=== PATIENT | female | born 1990 | race Caucasian/White ===

== ENCOUNTER 2021-05-13 20:11 | Inpatient (IN) | payer OTHER ==
[~2021-05-13] VITALS: Ht 132.1 cm; Wt 68.5 kg
[2021-05-13] MEDS ORDERED: AZITHROMYCIN 500 MG in DEXT 5% WATER 250 ML IV ONE (20:30)
[2021-05-13] MEDS ORDERED: CEFTRIAXONE 1 G PREMIX 50 ML IV ONE (20:30)
[2021-05-13] MEDS ORDERED: DEXAMETHASONE 10 MG/ML VIAL IV ONE (20:30)
[2021-05-13] MEDS ORDERED: NOREPINEPHRINE 8 MG in DEXT 5% WATER 242 ML IV STA (20:43)
[2021-05-13] MEDS ORDERED: SODIUM CHLORIDE 0.9% 1000ML BAG (SEPSIS BOLUS) IV ONE (20:45)
[2021-05-13 20:50] LABS: BASOPHILS % 0.2 % (0.0-2.0); HEMATOCRIT. 32.7 % (36.0-48.0); HEMOGLOBIN. 11.2 g/dL (12.0-16.0); LYMPHOCYTES % 8.9 % (20.0-50.0); MEAN CORPUSCULAR HEMOGLOBIN 32.6 pg (28.0-32.0); MEAN CORPUSCULAR VOLUME 94.7 fL (81.0-99.0); MEAN PLATELET VOLUME 10.9 fl (7.4-10.4); MONOCYTES % 4.4 % (2.0-8.0); NEUTROPHILS % 86.5 % (40.0-76.0); PLATELET 71 x1000/uL (130-400); RED BLOOD CELL COUNT 3.45 mill/uL (4.2-5.4)
[2021-05-13 20:52] LABS: HCG SCREEN NEGATIVE
[2021-05-13] MEDS ORDERED: NOREPINEPHRINE 8MG/250ML PMX 250 ML IV PRN (21:00)
[2021-05-13 21:03] LABS: D-DIMER 4.35 mg/L FEU (<0.50); PROTHROMBIN TIME 10.7 sec (9.6-11.0)
[2021-05-13 21:57] LABS: CHLORIDE 109 mEq/L (98-107)
[2021-05-13 22:06] LABS: CREATINE KINASE 599 IU/L (26-192)
[2021-05-13 22:07] LABS: T4 FREE 1.12 ng/dL (0.76-1.46)
[2021-05-13 22:09] LABS: CLARITY URINE CLEAR (CLEAR); COLOR URINE YELLOW (YELLOW); KETONES URINE NEGATIVE (NEGATIVE); LEUKOCYTE ESTERASE URINE NEGATIVE (NEGATIVE); NITRITE URINE NEGATIVE (NEGATIVE); OCCULT BLOOD URINE NEGATIVE (NEGATIVE); PH URINE 5.5 (4.5-8.0); PROTEIN URINE 1+ (NEGATIVE); SPECIFIC GRAVITY URINE 1.018 (1.005-1.030)
[2021-05-14] VITALS (13 sets, daily range): BP systolic 86–119; BP diastolic 60–78
[2021-05-14] MEDS ORDERED: NOREPINEPHRINE 8MG/250ML PMX 250 ML IV PRN ×2 (06:15→21:30)
[2021-05-14 08:11] LABS: BG BASE EXCESS -2.9 mmol/L (-2.0-2.0); BG CARBOXYHEMOGLOBIN 0.3 % (0.5-1.5); BG DEOXYHEMOGLOBIN 16.1 % (0.0-5.0); BG HCO3 ACT 22.6 mmol/L (22.0-26.0); BG METHEMOGLOBIN 0.3 % (0.0-1.5); BG OXYGEN SATURATION 83.8 % (92.0-98.5); BG OXYHEMOGLOBIN 83.3 % (94.0-97.0); BG PCO2 41.9 mmHg (35.0-45.0); BG PH 7.349 (7.350-7.450); BG PO2 49.2 mmHg (75.0-100.0); BG SAMPLE SITE RIGHT RADIAL; BG TOTAL HEMOGLOBIN 12.4 g/dL (12.0-18.0); BG VENT MODE MASK - BIPAP
[2021-05-14] MEDS ORDERED: ACETAMINOPHEN 325MG TABLET PO PRN (08:30)
[2021-05-14] MEDS ORDERED: ALBUTEROL 6.7GM HFA INHALER ORI PRN (08:30)
[2021-05-14] MEDS ORDERED: LIDOCAINE HCL/PF 1% 2ML VIAL ONE (08:45)
[2021-05-14] MEDS ORDERED: DEXAMETHASONE 4MG/ML 1ML VIAL IV SCH (09:00)
[2021-05-14] MEDS: DEXAMETHASONE 4MG/ML 1ML VIAL IV SCH (10:03)
[2021-05-14] MEDS ORDERED: ETOMIDATE 2MG/ML 10ML VIAL IV ONE (14:20)
[2021-05-14] MEDS ORDERED: VECURONIUM BROMIDE 10 MG/VIAL IV ONE (14:20)
[2021-05-14] MEDS ORDERED: SUCCINYLCHOLINE CHLORIDE 200MG/10ML IV ONE (14:20)
[2021-05-14] MEDS ORDERED: NOREPINEPHRINE 8 MG in DEXTROSE 5% WATER 250 ML IV PRN (20:15)
[2021-05-14] MEDS ORDERED: CEFTRIAXONE 1 G PREMIX 50 ML IV SCH (21:00)
[2021-05-14] MEDS ORDERED: AZITHROMYCIN 500 MG in DEXT 5% WATER 250 ML IV SCH (21:00)
[2021-05-14] MEDS: CEFTRIAXONE 1,000 MG in DEXTROSE 5% WATER 50 ML IV SCH (21:31)
[2021-05-14] MEDS: AZITHROMYCIN 500 MG in DEXT 5% WATER 250 ML IV SCH (22:33)
[2021-05-14] MEDS: NOREPINEPHRINE 8 MG in DEXTROSE 5% WATER 250 ML IV PRN (23:42)
[2021-05-15] VITALS (68 sets, daily range): BP systolic 85–117; BP diastolic 45–78
[2021-05-15 05:45] LABS: CHLORIDE 112 mEq/L (98-107)
[2021-05-15 05:47] LABS: HEMOGLOBIN. 11.1 g/dL (12.0-16.0); MEAN CORPUSCULAR HEMOGLOBIN 32.8 pg (28.0-32.0); MEAN CORPUSCULAR VOLUME 94.4 fL (81.0-99.0); MEAN PLATELET VOLUME 10.6 fl (7.4-10.4); PLATELET 80 x1000/uL (130-400); RED BLOOD CELL COUNT 3.39 mill/uL (4.2-5.4); RED CELL DISTRIBUTION WIDTH 15.2 % (11.6-14.6)
[2021-05-15] MEDS: DEXAMETHASONE 4MG/ML 1ML VIAL IV SCH (09:45)
[2021-05-15] MEDS: METHIMAZOLE 5MG TABLET PO SCH (09:46)
[2021-05-15] MEDS ORDERED: LIDOCAINE HCL 1% 20ML VIAL (Pyxis) INJ ONE (13:20)
[2021-05-15] MEDS: GUAIFENESIN-DM 200MG-20MG/10ML UDC PO PRN ×2 (14:12→21:07)
[2021-05-15] MEDS: MIDODRINE HCL 5MG TABLET PO SCH ×2 (14:12→17:10)
[2021-05-15 14:25] LABS: PLATELET ESTIMATE DECREASED
[2021-05-15] MEDS: DEXT 5%/0.45% NACL 1000ML 1,000 ML IV SCH (17:08)
[2021-05-15] MEDS: CEFTRIAXONE 1,000 MG in DEXTROSE 5% WATER 50 ML IV SCH (21:06)
[2021-05-15] MEDS: AZITHROMYCIN 500 MG in DEXT 5% WATER 250 ML IV SCH (21:45)
[2021-05-16] VITALS (49 sets, daily range): BP systolic 62–143; BP diastolic 31–86
[2021-05-16] MEDS: DEXT 5%/0.45% NACL 1000ML 1,000 ML IV SCH ×2 (04:14→16:21)
[2021-05-16] MEDS: GUAIFENESIN-DM 200MG-20MG/10ML UDC PO PRN ×3 (04:14→14:15)
[2021-05-16 06:05] LABS: HEMATOCRIT. 29.9 % (36.0-48.0); HEMOGLOBIN. 10.3 g/dL (12.0-16.0); MEAN CORPUSCULAR HEMOGLOBIN 32.8 pg (28.0-32.0); MEAN CORPUSCULAR VOLUME 95.2 fL (81.0-99.0); MEAN PLATELET VOLUME 10.6 fl (7.4-10.4); PLATELET 60 x1000/uL (130-400); RED BLOOD CELL COUNT 3.14 mill/uL (4.2-5.4); RED CELL DISTRIBUTION WIDTH 14.8 % (11.6-14.6)
[2021-05-16 06:10] LABS: CHLORIDE 111 mEq/L (98-107)
[2021-05-16] MEDS: DEXAMETHASONE 4MG/ML 1ML VIAL IV SCH (09:04)
[2021-05-16] MEDS: MIDODRINE HCL 5MG TABLET PO SCH ×3 (09:04→16:19)
[2021-05-16] MEDS: METHIMAZOLE 5MG TABLET PO SCH (09:05)
[2021-05-16] MEDS ORDERED: VANCOMYCIN 1 G PREMIX 200 ML IV NR (15:30)
[2021-05-16] MEDS: ONDANSETRON HCL 4MG/2ML INJ IV PRN (16:25)
[2021-05-16] MEDS: CEFTRIAXONE 1,000 MG in DEXTROSE 5% WATER 50 ML IV SCH (21:21)
[2021-05-16] MEDS: AZITHROMYCIN 500MG in DEXTROSE 5% WATER 250ML IV SCH (22:09)
[2021-05-17] VITALS (71 sets, daily range): BP systolic 68–130; BP diastolic 30–69
[2021-05-17 01:05] LABS: BG BASE EXCESS 0.7 mmol/L (-2.0-2.0); BG CARBOXYHEMOGLOBIN 0.2 % (0.5-1.5); BG DEOXYHEMOGLOBIN 13.5 % (0.0-5.0); BG FRACTION INSPIRED OXYGEN 90; BG HCO3 ACT 24.9 mmol/L (22.0-26.0); BG METHEMOGLOBIN 0.3 % (0.0-1.5); BG OXYGEN SATURATION 86.4 % (92.0-98.5); BG PCO2 37.9 mmHg (35.0-45.0); BG PH 7.435 (7.350-7.450); BG PO2 52.9 mmHg (75.0-100.0); BG SAMPLE SITE ALINE; BG TOTAL HEMOGLOBIN 9.7 g/dL (12.0-18.0); BG VENT MODE MASK - BIPAP
[2021-05-17] MEDS ORDERED: VANCOMYCIN 750 MG PREMIX 150 ML IV SCH ×2 (05:00→20:00)
[2021-05-17 05:47] LABS: CHLORIDE 107 mEq/L (98-107)
[2021-05-17 05:56] LABS: HEMATOCRIT. 31.1 % (36.0-48.0); HEMOGLOBIN. 10.9 g/dL (12.0-16.0); MEAN CORPUSCULAR HEMOGLOBIN 33.9 pg (28.0-32.0); MEAN CORPUSCULAR VOLUME 96.3 fL (81.0-99.0); MEAN PLATELET VOLUME 11.8 fl (7.4-10.4); RED BLOOD CELL COUNT 3.23 mill/uL (4.2-5.4); RED CELL DISTRIBUTION WIDTH 14.7 % (11.6-14.6)
[2021-05-17 07:01] LABS: PLATELET 50 x1000/uL (130-400)
[2021-05-17] MEDS: DEXT 5%/0.45% NACL 1000ML 1,000 ML IV SCH ×2 (09:15→20:59)
[2021-05-17] MEDS: ONDANSETRON HCL 4MG/2ML INJ IV PRN (09:15)
[2021-05-17] MEDS: GUAIFENESIN-DM 200MG-20MG/10ML UDC PO PRN (09:15)
[2021-05-17] MEDS: DEXAMETHASONE 4MG/ML 1ML VIAL IV SCH (09:15)
[2021-05-17] MEDS: MULTIVITAMINS,THER W-MINERALS TABLET PO SCH (09:16)
[2021-05-17] MEDS: MIDODRINE HCL 5MG TABLET PO SCH ×3 (09:16→18:11)
[2021-05-17] MEDS: METHIMAZOLE 5MG TABLET PO SCH (09:16)
[2021-05-17 09:33] LABS: BG BASE EXCESS 1.6 mmol/L (-2.0-2.0); BG CARBOXYHEMOGLOBIN 0.3 % (0.5-1.5); BG DEOXYHEMOGLOBIN 16.5 % (0.0-5.0); BG FRACTION INSPIRED OXYGEN 100; BG HCO3 ACT 25.5 mmol/L (22.0-26.0); BG METHEMOGLOBIN 0.3 % (0.0-1.5); BG OXYGEN SATURATION 83.4 % (92.0-98.5); BG OXYHEMOGLOBIN 82.9 % (94.0-97.0); BG PCO2 37.4 mmHg (35.0-45.0); BG PH 7.451 (7.350-7.450); BG SAMPLE SITE RIGHT RADIAL; BG TOTAL HEMOGLOBIN 10.7 g/dL (12.0-18.0); BG VENT MODE MASK - CPAP
[2021-05-17] MEDS: SUCRALFATE 1 G/10 ML UDC NG SCH ×3 (11:50→23:51)
[2021-05-17] MEDS: PANTOPRAZOLE SODIUM 40 MG/VIAL IV SCH ×2 (11:50→20:58)
[2021-05-17 13:00] LABS: HEMATOCRIT 32.7 % (36.0-48.0)
[2021-05-17] MEDS ORDERED: PROPOFOL 10MG/ML 100ML 100 ML IV PRN (13:00)
[2021-05-17] MEDS ORDERED: MIDAZOLAM 100MG/100ML PMX 100 ML IV PRN (13:00)
[2021-05-17] MEDS: PHENYLEPHRINE 100 MG in DEXT 5% WATER 240 ML IV PRN (13:56)
[2021-05-17] MEDS: MIDAZOLAM HCL 100 MG in SODIUM CHLORIDE 0.9% 100 ML IV PRN (13:57)
[2021-05-17] MEDS: FENTANYL CITRATE/PF 2,500 MCG in SODIUM CHLORIDE 0.9% 200 ML IV PRN (13:58)
[2021-05-17 14:31] LABS: BG BASE EXCESS 0.9 mmol/L (-2.0-2.0); BG CARBOXYHEMOGLOBIN 0.3 % (0.5-1.5); BG DEOXYHEMOGLOBIN 3.2 % (0.0-5.0); BG FRACTION INSPIRED OXYGEN 100; BG HCO3 ACT 25.5 mmol/L (22.0-26.0); BG METHEMOGLOBIN 0.1 % (0.0-1.5); BG OXYGEN SATURATION 96.8 % (92.0-98.5); BG OXYHEMOGLOBIN 96.4 % (94.0-97.0); BG PCO2 40.8 mmHg (35.0-45.0); BG PH 7.414 (7.350-7.450); BG PO2 96.1 mmHg (75.0-100.0); BG SAMPLE SITE LEFT BRACHIAL; BG TOTAL HEMOGLOBIN 11.2 g/dL (12.0-18.0); BG VENT MODE VENT - AC
[2021-05-17 16:10] LABS: PLATELET ESTIMATE DECREASED
[2021-05-17 17:12] LABS: PLATELET ESTIMATE MARKEDLY DECREASED
[2021-05-17] MEDS: CEFTRIAXONE 1,000 MG in DEXTROSE 5% WATER 50 ML IV SCH (20:58)
[2021-05-17] MEDS: AZITHROMYCIN 500MG in DEXTROSE 5% WATER 250ML IV SCH (22:05)
[2021-05-18] VITALS (99 sets, daily range): BP systolic 84–169; BP diastolic 40–85
[2021-05-18 00:46] LABS: HEMATOCRIT 27.2 % (36.0-48.0); HEMOGLOBIN 9.6 g/dL (12.0-16.0)
[2021-05-18] MEDS: SUCRALFATE 1 G/10 ML UDC NG SCH ×3 (05:52→18:37)
[2021-05-18 06:14] LABS: HEMATOCRIT. 30.9 % (36.0-48.0); HEMOGLOBIN. 10.3 g/dL (12.0-16.0); MEAN CORPUSCULAR HEMOGLOBIN 32.4 pg (28.0-32.0); MEAN CORPUSCULAR VOLUME 97.1 fL (81.0-99.0); RED BLOOD CELL COUNT 3.18 mill/uL (4.2-5.4); RED CELL DISTRIBUTION WIDTH 15.2 % (11.6-14.6)
[2021-05-18 06:26] LABS: CHLORIDE 105 mEq/L (98-107)
[2021-05-18 06:34] LABS: TOTAL IRON BINDING CAPACITY 192 ug/dL (250-450)
[2021-05-18 06:36] LABS: CREATINE KINASE 74 IU/L (26-192)
[2021-05-18 06:44] LABS: PLATELET 24 x1000/uL (130-400)
[2021-05-18 06:50] LABS: HEPATITIS B SURFACE ANTIGEN NEGATIVE
[2021-05-18 06:58] LABS: FOLIC ACID (FOLATE) SERUM 7.4 ng/mL (>5.38)
[2021-05-18 07:19] LABS: HEPATITIS A AB IGM NEGATIVE (NEGATIVE)
[2021-05-18 09:04] LABS: BG BASE EXCESS 0.4 mmol/L (-2.0-2.0); BG CARBOXYHEMOGLOBIN 0.3 % (0.5-1.5); BG DEOXYHEMOGLOBIN 0.9 % (0.0-5.0); BG FRACTION INSPIRED OXYGEN 100; BG HCO3 ACT 24.4 mmol/L (22.0-26.0); BG METHEMOGLOBIN 0.2 % (0.0-1.5); BG OXYGEN SATURATION 99.1 % (92.0-98.5); BG OXYHEMOGLOBIN 98.6 % (94.0-97.0); BG PCO2 36.9 mmHg (35.0-45.0); BG PH 7.438 (7.350-7.450); BG PO2 239.6 mmHg (75.0-100.0); BG SAMPLE SITE RIGHT RADIAL; BG TOTAL HEMOGLOBIN 10.5 g/dL (12.0-18.0); BG VENT MODE VENT - AC
[2021-05-18] MEDS: PANTOPRAZOLE SODIUM 40 MG/VIAL IV SCH ×2 (09:20→20:42)
[2021-05-18] MEDS: MULTIVITAMINS,THER W-MINERALS TABLET PO SCH (09:20)
[2021-05-18] MEDS: METHIMAZOLE 5MG TABLET PO SCH (09:20)
[2021-05-18] MEDS: DEXAMETHASONE 4MG/ML 1ML VIAL IV SCH (09:20)
[2021-05-18] MEDS: MIDODRINE HCL 5MG TABLET PO SCH ×3 (11:03→21:29)
[2021-05-18] MEDS: DEXT 5%/0.45% NACL 1000ML 1,000 ML IV SCH (11:03)
[2021-05-18] MEDS ORDERED: IPRATROPIUM/ALBUTEROL 0.5-3(2.5)MG/3ML NEB HHN PRN (11:15)
[2021-05-18] MEDS: NOREPINEPHRINE 8 MG in DEXTROSE 5% WATER 250 ML IV PRN (15:19)
[2021-05-18 19:35] LABS: PLATELET ESTIMATE MARKEDLY DECREASED
[2021-05-18] MEDS: IPRATROPIUM/ALBUTEROL 0.5-3(2.5)MG/3ML NEB HHN SCH (20:24)
[2021-05-18] MEDS: CEFTRIAXONE 1,000 MG in DEXTROSE 5% WATER 50 ML IV SCH (20:43)
[2021-05-18] MEDS: AZITHROMYCIN 500MG in DEXTROSE 5% WATER 250ML IV SCH (21:29)
[2021-05-19] VITALS (95 sets, daily range): BP systolic 103–161; BP diastolic 39–92
[2021-05-19] MEDS: NOREPINEPHRINE 8 MG in DEXTROSE 5% WATER 250 ML IV PRN ×2 (00:05→12:10)
[2021-05-19] MEDS: SUCRALFATE 1 G/10 ML UDC NG SCH ×5 (00:05→23:33)
[2021-05-19] MEDS: DEXT 5%/0.45% NACL 1000ML 1,000 ML IV SCH ×2 (00:07→12:09)
[2021-05-19] MEDS: IPRATROPIUM/ALBUTEROL 0.5-3(2.5)MG/3ML NEB HHN SCH ×4 (01:53→20:14)
[2021-05-19] MEDS: FENTANYL CITRATE/PF 2,500 MCG in SODIUM CHLORIDE 0.9% 200 ML IV PRN ×2 (03:12→23:32)
[2021-05-19 05:04] LABS: HEMATOCRIT. 31.8 % (36.0-48.0); HEMOGLOBIN. 10.6 g/dL (12.0-16.0); MEAN CORPUSCULAR HEMOGLOBIN 32.2 pg (28.0-32.0); MEAN CORPUSCULAR VOLUME 96.3 fL (81.0-99.0); MEAN PLATELET VOLUME 8.7 fl (7.4-10.4); RED CELL DISTRIBUTION WIDTH 15.2 % (11.6-14.6)
[2021-05-19] MEDS: MIDODRINE HCL 5MG TABLET PO SCH ×3 (05:05→21:05)
[2021-05-19 05:09] LABS: CHLORIDE 101 mEq/L (98-107)
[2021-05-19 06:51] LABS: PLATELET 28 x1000/uL (130-400)
[2021-05-19] MEDS: MULTIVITAMINS,THER W-MINERALS TABLET PO SCH (08:07)
[2021-05-19] MEDS: PANTOPRAZOLE SODIUM 40 MG/VIAL IV SCH ×2 (08:07→20:39)
[2021-05-19] MEDS: DEXAMETHASONE 4MG/ML 1ML VIAL IV SCH (08:07)
[2021-05-19] MEDS: METHIMAZOLE 5MG TABLET PO SCH (08:07)
[2021-05-19 08:27] LABS: BG CARBOXYHEMOGLOBIN 0.3 % (0.5-1.5); BG DEOXYHEMOGLOBIN 9.5 % (0.0-5.0); BG METHEMOGLOBIN 0.5 % (0.0-1.5); BG OXYGEN SATURATION 90.4 % (92.0-98.5); BG OXYHEMOGLOBIN 89.7 % (94.0-97.0); BG PCO2 49.7 mmHg (35.0-45.0); BG PH 7.264 (7.350-7.450); BG PO2 66.6 mmHg (75.0-100.0); BG SAMPLE SITE LEFT RADIAL; BG TOTAL HEMOGLOBIN 10.3 g/dL (12.0-18.0); BG VENT MODE VENT- PRVC
[2021-05-19 13:48] LABS: PLATELET ESTIMATE MARKEDLY DECREASED
[2021-05-19] MEDS: CEFTRIAXONE 1,000 MG in DEXTROSE 5% WATER 50 ML IV SCH (20:40)
[2021-05-19] MEDS: MIDAZOLAM HCL 100 MG in SODIUM CHLORIDE 0.9% 100 ML IV PRN (20:55)
[2021-05-20] VITALS (100 sets, daily range): BP systolic 88–124; BP diastolic 41–69
[2021-05-20] MEDS: DEXT 5%/0.45% NACL 1000ML 1,000 ML IV SCH ×2 (00:15→15:52)
[2021-05-20] MEDS: IPRATROPIUM/ALBUTEROL 0.5-3(2.5)MG/3ML NEB HHN SCH ×4 (02:08→20:40)
[2021-05-20 05:42] LABS: CHLORIDE 102 mEq/L (98-107)
[2021-05-20] MEDS: MIDODRINE HCL 5MG TABLET PO SCH ×3 (05:42→21:07)
[2021-05-20] MEDS: SUCRALFATE 1 G/10 ML UDC NG SCH ×3 (05:42→18:00)
[2021-05-20 05:48] LABS: HEMATOCRIT. 23.1 % (36.0-48.0); HEMOGLOBIN. 8.2 g/dL (12.0-16.0); MEAN CORPUSCULAR HEMOGLOBIN 33.1 pg (28.0-32.0); MEAN CORPUSCULAR VOLUME 93.2 fL (81.0-99.0); MEAN PLATELET VOLUME 10.9 fl (7.4-10.4); RED BLOOD CELL COUNT 2.48 mill/uL (4.2-5.4); RED CELL DISTRIBUTION WIDTH 14.5 % (11.6-14.6)
[2021-05-20 06:19] LABS: PLATELET 9 x1000/uL (130-400)
[2021-05-20] MEDS: PANTOPRAZOLE SODIUM 40 MG/VIAL IV SCH ×2 (08:28→21:06)
[2021-05-20] MEDS: DEXAMETHASONE 10 MG/ML VIAL IV SCH (08:28)
[2021-05-20] MEDS: MULTIVITAMINS,THER W-MINERALS TABLET PO SCH (08:28)
[2021-05-20] MEDS: METHIMAZOLE 5MG TABLET PO SCH (08:28)
[2021-05-20] MEDS ORDERED: POTASSIUM CHLORIDE 20MEQ TABLET SR PO SCH (09:00)
[2021-05-20 09:21] LABS: BG BASE EXCESS -5.1 mmol/L (-2.0-2.0); BG CARBOXYHEMOGLOBIN 0.4 % (0.5-1.5); BG DEOXYHEMOGLOBIN 9.3 % (0.0-5.0); BG FRACTION INSPIRED OXYGEN 100; BG HCO3 ACT 21.2 mmol/L (22.0-26.0); BG METHEMOGLOBIN 0.5 % (0.0-1.5); BG OXYGEN SATURATION 90.6 % (92.0-98.5); BG OXYHEMOGLOBIN 89.8 % (94.0-97.0); BG PCO2 45.2 mmHg (35.0-45.0); BG PO2 63.3 mmHg (75.0-100.0); BG SAMPLE SITE RIGHT RADIAL; BG TOTAL HEMOGLOBIN 8.8 g/dL (12.0-18.0); BG VENT MODE PRVC
[2021-05-20 10:53] LABS: PLATELET ESTIMATE MARKEDLY DECREASED
[2021-05-20 18:04] LABS: INR 1.3; PROTHROMBIN TIME 13.8 sec (9.6-11.0)
[2021-05-20 18:08] LABS: D-DIMER > 35.20 mg/L FEU (<0.50)
[2021-05-20 18:11] LABS: FIBRINOGEN 95 mg/dL (200-400)
[2021-05-20] MEDS: CEFTRIAXONE 1,000 MG in DEXTROSE 5% WATER 50 ML IV SCH (21:06)
[2021-05-20] MEDS: FENTANYL CITRATE/PF 2,500 MCG in SODIUM CHLORIDE 0.9% 200 ML IV PRN (21:08)
[2021-05-21] VITALS (96 sets, daily range): BP systolic 85–126; BP diastolic 34–61
[2021-05-21] MEDS: SUCRALFATE 1 G/10 ML UDC NG SCH ×4 (00:30→17:50)
[2021-05-21] MEDS: IPRATROPIUM/ALBUTEROL 0.5-3(2.5)MG/3ML NEB HHN SCH ×4 (00:54→21:25)
[2021-05-21 05:06] LABS: MEAN CORPUSCULAR HEMOGLOBIN 33.4 pg (28.0-32.0); MEAN CORPUSCULAR VOLUME 96.1 fL (81.0-99.0); MEAN PLATELET VOLUME 9.2 fl (7.4-10.4); RED BLOOD CELL COUNT 2.02 mill/uL (4.2-5.4)
[2021-05-21 05:10] LABS: CHLORIDE 106 mEq/L (98-107)
[2021-05-21 05:33] LABS: HEMATOCRIT. 19.4 % (36.0-48.0); HEMOGLOBIN. 6.7 g/dL (12.0-16.0)
[2021-05-21 05:34] LABS: PLATELET 15 x1000/uL (130-400)
[2021-05-21] MEDS: MIDODRINE HCL 5MG TABLET PO SCH ×3 (06:03→21:50)
[2021-05-21] MEDS: DEXT 5%/0.45% NACL 1000ML 1,000 ML IV SCH ×2 (06:03→17:50)
[2021-05-21] MEDS: MIDAZOLAM HCL 100 MG in SODIUM CHLORIDE 0.9% 100 ML IV PRN (06:05)
[2021-05-21] MEDS: DEXAMETHASONE 10 MG/ML VIAL IV SCH (08:08)
[2021-05-21] MEDS: MULTIVITAMINS,THER W-MINERALS TABLET PO SCH (08:08)
[2021-05-21] MEDS: PANTOPRAZOLE SODIUM 40 MG/VIAL IV SCH ×2 (08:08→21:49)
[2021-05-21] MEDS: METHIMAZOLE 5MG TABLET PO SCH (08:08)
[2021-05-21 10:05] LABS: BG BASE EXCESS -4.6 mmol/L (-2.0-2.0); BG CARBOXYHEMOGLOBIN 0.3 % (0.5-1.5); BG DEOXYHEMOGLOBIN 2.3 % (0.0-5.0); BG FRACTION INSPIRED OXYGEN 100; BG METHEMOGLOBIN 0.3 % (0.0-1.5); BG OXYGEN SATURATION 97.7 % (92.0-98.5); BG OXYHEMOGLOBIN 97.1 % (94.0-97.0); BG PCO2 40.7 mmHg (35.0-45.0); BG PO2 118.2 mmHg (75.0-100.0); BG SAMPLE SITE LEFT BRACHIAL; BG TOTAL HEMOGLOBIN 8.3 g/dL (12.0-18.0); BG VENT MODE VENT - PRVC
[2021-05-21 10:57] LABS: HEMATOCRIT 28.5 % (36.0-48.0); HEMOGLOBIN 9.4 g/dL (12.0-16.0)
[2021-05-21 11:06] LABS: INR 1.3; PROTHROMBIN TIME 13.4 sec (9.6-11.0)
[2021-05-21 11:38] LABS: PLATELET ESTIMATE MARKEDLY DECREASED
[2021-05-21 11:39] LABS: NUCLEATED RED BLOOD CELLS 2 /100 WBC
[2021-05-21] MEDS: NOREPINEPHRINE 8 MG in DEXTROSE 5% WATER 250 ML IV PRN (12:26)
[2021-05-21] MEDS: FENTANYL CITRATE/PF 2,500 MCG in SODIUM CHLORIDE 0.9% 200 ML IV PRN (16:05)
[2021-05-21] MEDS: CEFTRIAXONE 1,000 MG in DEXTROSE 5% WATER 50 ML IV SCH (21:50)
[2021-05-22] VITALS (103 sets, daily range): BP systolic 78–133; BP diastolic 30–63
[2021-05-22] MEDS: IPRATROPIUM/ALBUTEROL 0.5-3(2.5)MG/3ML NEB HHN SCH ×4 (00:36→20:51)
[2021-05-22] MEDS: SUCRALFATE 1 G/10 ML UDC NG SCH ×4 (01:17→17:42)
[2021-05-22 03:08] LABS: BG BASE EXCESS -2.2 mmol/L (-2.0-2.0); BG CARBOXYHEMOGLOBIN 0.7 % (0.5-1.5); BG DEOXYHEMOGLOBIN 36.9 % (0.0-5.0); BG FRACTION INSPIRED OXYGEN 100; BG HCO3 ACT 24.6 mmol/L (22.0-26.0); BG METHEMOGLOBIN 0.4 % (0.0-1.5); BG OXYGEN SATURATION 62.7 % (92.0-98.5); BG PH 7.292 (7.350-7.450); BG PO2 34.2 mmHg (75.0-100.0); BG SAMPLE SITE RIGHT RADIAL; BG TOTAL HEMOGLOBIN 9.4 g/dL (12.0-18.0); BG VENT MODE PRVC
[2021-05-22] MEDS: PHENYLEPHRINE 100 MG in DEXT 5% WATER 240 ML IV PRN ×2 (03:18→20:45)
[2021-05-22] MEDS: PROPOFOL 10MG/ML 100ML 100 ML IV PRN ×3 (04:51→14:24)
[2021-05-22 05:38] LABS: INR 1.3; PROTHROMBIN TIME 13.6 sec (9.6-11.0)
[2021-05-22 05:40] LABS: HEMATOCRIT. 25.1 % (36.0-48.0); HEMOGLOBIN. 8.7 g/dL (12.0-16.0); MEAN CORPUSCULAR HEMOGLOBIN 31.8 pg (28.0-32.0); MEAN CORPUSCULAR VOLUME 91.9 fL (81.0-99.0); MEAN PLATELET VOLUME 10.1 fl (7.4-10.4); RED BLOOD CELL COUNT 2.73 mill/uL (4.2-5.4); RED CELL DISTRIBUTION WIDTH 15.8 % (11.6-14.6)
[2021-05-22 05:50] LABS: CHLORIDE 110 mEq/L (98-107)
[2021-05-22] MEDS: MIDAZOLAM HCL 100 MG in SODIUM CHLORIDE 0.9% 100 ML IV PRN ×2 (06:12→12:52)
[2021-05-22] MEDS: FENTANYL CITRATE/PF 2,500 MCG in SODIUM CHLORIDE 0.9% 200 ML IV PRN ×2 (06:13→12:53)
[2021-05-22] MEDS: MIDODRINE HCL 5MG TABLET PO SCH ×3 (06:14→21:35)
[2021-05-22] MEDS: DEXT 5%/0.45% NACL 1000ML 1,000 ML IV SCH ×2 (06:16→21:05)
[2021-05-22 06:23] LABS: PLATELET 12 x1000/uL (130-400)
[2021-05-22] MEDS: METHIMAZOLE 5MG TABLET PO SCH (08:10)
[2021-05-22] MEDS: MULTIVITAMINS,THER W-MINERALS TABLET PO SCH (08:10)
[2021-05-22] MEDS: DEXAMETHASONE 10 MG/ML VIAL IV SCH (08:10)
[2021-05-22] MEDS: PANTOPRAZOLE SODIUM 40 MG/VIAL IV SCH ×2 (08:10→20:44)
[2021-05-22 08:53] LABS: BG BASE EXCESS -2.7 mmol/L (-2.0-2.0); BG CARBOXYHEMOGLOBIN 0.2 % (0.5-1.5); BG FRACTION INSPIRED OXYGEN 100; BG HCO3 ACT 24.1 mmol/L (22.0-26.0); BG METHEMOGLOBIN 0.3 % (0.0-1.5); BG OXYGEN SATURATION 89.9 % (92.0-98.5); BG OXYHEMOGLOBIN 89.5 % (94.0-97.0); BG PCO2 51.3 mmHg (35.0-45.0); BG PH 7.289 (7.350-7.450); BG PO2 58.9 mmHg (75.0-100.0); BG SAMPLE SITE LEFT RADIAL; BG TOTAL HEMOGLOBIN 9.3 g/dL (12.0-18.0); BG VENT MODE VENT - PRVC
[2021-05-22] MEDS ORDERED: FENTANYL CITRATE/PF 2,500 MCG in SODIUM CHLORIDE 0.9% 200 ML IV PRN (14:30)
[2021-05-22] MEDS ORDERED: MIDAZOLAM HCL 100 MG in SODIUM CHLORIDE 0.9% 80 ML IV PRN (14:30)
[2021-05-22 15:53] LABS: NUCLEATED RED BLOOD CELLS 6 /100 WBC
[2021-05-22 15:55] LABS: PLATELET ESTIMATE MARKEDLY DECREASED
[2021-05-22] MEDS: CEFEPIME 1,000 MG in DEXTROSE 5% WATER 50 ML IV SCH (17:42)
[2021-05-22] MEDS ORDERED: PROPOFOL 10MG/ML 100ML 100 ML IV PRN (18:45)
[2021-05-22 19:19] LABS: CLARITY URINE CLEAR (CLEAR); COLOR URINE YELLOW (YELLOW); KETONES URINE NEGATIVE (NEGATIVE); LEUKOCYTE ESTERASE URINE NEGATIVE (NEGATIVE); NITRITE URINE NEGATIVE (NEGATIVE); OCCULT BLOOD URINE 2+ (NEGATIVE); PH URINE 6.5 (4.5-8.0); PROTEIN URINE TRACE (NEGATIVE); SPECIFIC GRAVITY URINE 1.008 (1.005-1.030); UROBILINOGEN URINE 0.2 E.U./dL (0.2-1.0)
[2021-05-22 21:31] LABS: HEMATOCRIT 24.7 % (36.0-48.0); HEMOGLOBIN 8.4 g/dL (12.0-16.0)
[2021-05-22 21:38] LABS: INR 1.3; PROTHROMBIN TIME 13.6 sec (9.6-11.0)
[2021-05-23] VITALS (96 sets, daily range): BP systolic 75–157; BP diastolic 20–73
[2021-05-23] MEDS: SUCRALFATE 1 G/10 ML UDC NG SCH ×5 (00:23→23:12)
[2021-05-23] MEDS: IPRATROPIUM/ALBUTEROL 0.5-3(2.5)MG/3ML NEB HHN SCH ×4 (01:28→20:57)
[2021-05-23] MEDS: CEFEPIME 1,000 MG in DEXTROSE 5% WATER 50 ML IV SCH ×2 (05:51→17:15)
[2021-05-23] MEDS: MIDODRINE HCL 5MG TABLET PO SCH ×3 (06:00→21:43)
[2021-05-23 06:58] LABS: CHLORIDE 112 mEq/L (98-107); HEMATOCRIT. 23.4 % (36.0-48.0); MEAN CORPUSCULAR HEMOGLOBIN 31.7 pg (28.0-32.0); RED BLOOD CELL COUNT 2.51 mill/uL (4.2-5.4); RED CELL DISTRIBUTION WIDTH 16.5 % (11.6-14.6)
[2021-05-23 07:25] LABS: PLATELET 23 x1000/uL (130-400)
[2021-05-23 07:43] LABS: BG BASE EXCESS -1.1 mmol/L (-2.0-2.0); BG CARBOXYHEMOGLOBIN 0.2 % (0.5-1.5); BG DEOXYHEMOGLOBIN 3.8 % (0.0-5.0); BG METHEMOGLOBIN 0.4 % (0.0-1.5); BG OXYGEN SATURATION 96.2 % (92.0-98.5); BG OXYHEMOGLOBIN 95.6 % (94.0-97.0); BG PCO2 41.9 mmHg (35.0-45.0); BG PH 7.376 (7.350-7.450); BG PO2 85.8 mmHg (75.0-100.0); BG SAMPLE SITE RIGHT RADIAL; BG TOTAL HEMOGLOBIN 9.6 g/dL (12.0-18.0); BG VENT MODE VENT- PRVC
[2021-05-23] MEDS: MULTIVITAMINS,THER W-MINERALS TABLET PO SCH (10:05)
[2021-05-23] MEDS: METHIMAZOLE 5MG TABLET PO SCH (10:05)
[2021-05-23] MEDS: PANTOPRAZOLE SODIUM 40 MG/VIAL IV SCH ×2 (10:05→21:43)
[2021-05-23] MEDS: DEXT 5%/0.45% NACL 1000ML 1,000 ML IV SCH ×2 (10:06→23:06)
[2021-05-23] MEDS: DEXAMETHASONE 10 MG/ML VIAL IV SCH (10:06)
[2021-05-23] MEDS: FENTANYL CITRATE/PF 2,500 MCG in SODIUM CHLORIDE 0.9% 200 ML IV PRN (12:01)
[2021-05-23 18:01] LABS: NUCLEATED RED BLOOD CELLS 3 /100 WBC; PLATELET ESTIMATE MARKEDLY DECREASED
[2021-05-23] MEDS: PROPOFOL 10MG/ML 100ML 100 ML IV PRN (23:26)
[2021-05-24] VITALS (100 sets, daily range): BP systolic 63–144; BP diastolic 35–74
[2021-05-24] MEDS: IPRATROPIUM/ALBUTEROL 0.5-3(2.5)MG/3ML NEB HHN SCH ×4 (00:52→20:19)
[2021-05-24] MEDS: CEFEPIME 1,000 MG in DEXTROSE 5% WATER 50 ML IV SCH ×2 (04:14→17:25)
[2021-05-24] MEDS: FENTANYL CITRATE/PF 2,500 MCG in SODIUM CHLORIDE 0.9% 200 ML IV PRN ×3 (04:15→23:39)
[2021-05-24] MEDS: PHENYLEPHRINE 100 MG in DEXT 5% WATER 240 ML IV PRN (04:17)
[2021-05-24] MEDS: SUCRALFATE 1 G/10 ML UDC NG SCH ×4 (05:18→23:38)
[2021-05-24] MEDS: MIDODRINE HCL 5MG TABLET PO SCH ×3 (05:19→21:37)
[2021-05-24 05:41] LABS: CHLORIDE 108 mEq/L (98-107)
[2021-05-24] MEDS: PROPOFOL 10MG/ML 100ML 100 ML IV PRN ×3 (08:00→19:35)
[2021-05-24] MEDS: MULTIVITAMINS,THER W-MINERALS TABLET PO SCH (08:28)
[2021-05-24] MEDS: PANTOPRAZOLE SODIUM 40 MG/VIAL IV SCH ×2 (08:28→21:37)
[2021-05-24] MEDS: DEXAMETHASONE 10 MG/ML VIAL IV SCH (08:28)
[2021-05-24 08:44] LABS: BG BASE EXCESS -2.9 mmol/L (-2.0-2.0); BG CARBOXYHEMOGLOBIN 0.7 % (0.5-1.5); BG DEOXYHEMOGLOBIN 4.7 % (0.0-5.0); BG FRACTION INSPIRED OXYGEN 100; BG HCO3 ACT 22.4 mmol/L (22.0-26.0); BG METHEMOGLOBIN 0.4 % (0.0-1.5); BG OXYGEN SATURATION 95.2 % (92.0-98.5); BG OXYHEMOGLOBIN 94.2 % (94.0-97.0); BG PCO2 41.3 mmHg (35.0-45.0); BG PH 7.353 (7.350-7.450); BG PO2 84.9 mmHg (75.0-100.0); BG SAMPLE SITE RIGHT RADIAL; BG TOTAL HEMOGLOBIN 8.4 g/dL (12.0-18.0); BG VENT MODE VENT - PRVC
[2021-05-24] MEDS: METHIMAZOLE 5MG TABLET PO SCH (09:05)
[2021-05-24 09:38] LABS: HEMATOCRIT. 23.9 % (36.0-48.0); HEMOGLOBIN. 7.8 g/dL (12.0-16.0); MEAN CORPUSCULAR HEMOGLOBIN 31.2 pg (28.0-32.0); MEAN CORPUSCULAR VOLUME 96.1 fL (81.0-99.0); MEAN PLATELET VOLUME 10.3 fl (7.4-10.4); RED BLOOD CELL COUNT 2.49 mill/uL (4.2-5.4); RED CELL DISTRIBUTION WIDTH 16.8 % (11.6-14.6)
[2021-05-24 09:45] LABS: PLATELET 10 x1000/uL (130-400)
[2021-05-24 12:50] LABS: NUCLEATED RED BLOOD CELLS 6 /100 WBC; PLATELET ESTIMATE MARKEDLY DECREASED
[2021-05-24] MEDS: DEXT 5%/0.45% NACL 1000ML 1,000 ML IV SCH (14:32)
[2021-05-24] MEDS: MIDAZOLAM HCL 100 MG in SODIUM CHLORIDE 0.9% 80 ML IV PRN ×2 (16:12→23:38)
[2021-05-25] VITALS (108 sets, daily range): BP systolic 62–142; BP diastolic 23–117
[2021-05-25] MEDS ORDERED: PROPOFOL 10MG/ML 100ML 100 ML IV PRN ×2 (00:15→09:00)
[2021-05-25] MEDS: PHENYLEPHRINE 100 MG in DEXT 5% WATER 240 ML IV PRN ×3 (01:52→22:39)
[2021-05-25] MEDS: IPRATROPIUM/ALBUTEROL 0.5-3(2.5)MG/3ML NEB HHN SCH ×4 (03:02→19:35)
[2021-05-25] MEDS: CEFEPIME 1,000 MG in DEXTROSE 5% WATER 50 ML IV SCH ×2 (04:29→18:09)
[2021-05-25] MEDS: PROPOFOL 10MG/ML 100ML 100 ML IV PRN ×2 (04:29→08:46)
[2021-05-25] MEDS: DEXT 5%/0.45% NACL 1000ML 1,000 ML IV SCH ×2 (04:29→16:05)
[2021-05-25 05:58] LABS: CHLORIDE 111 mEq/L (98-107)
[2021-05-25 06:00] LABS: HEMATOCRIT. 21.3 % (36.0-48.0); MEAN CORPUSCULAR HEMOGLOBIN 31.9 pg (28.0-32.0); MEAN CORPUSCULAR VOLUME 96.6 fL (81.0-99.0); MEAN PLATELET VOLUME 11.6 fl (7.4-10.4); RED CELL DISTRIBUTION WIDTH 16.9 % (11.6-14.6)
[2021-05-25 06:38] LABS: PLATELET 5 x1000/uL (130-400)
[2021-05-25] MEDS: MIDODRINE HCL 5MG TABLET PO SCH ×3 (06:40→22:40)
[2021-05-25] MEDS: SUCRALFATE 1 G/10 ML UDC NG SCH ×3 (06:40→18:09)
[2021-05-25] MEDS: FENTANYL CITRATE/PF 2,500 MCG in SODIUM CHLORIDE 0.9% 200 ML IV PRN ×2 (07:39→15:32)
[2021-05-25 08:06] LABS: BG CARBOXYHEMOGLOBIN 1.8 % (0.5-1.5); BG DEOXYHEMOGLOBIN 11.4 % (0.0-5.0); BG HCO3 ACT 24.1 mmol/L (22.0-26.0); BG OXYGEN SATURATION 88.3 % (92.0-98.5); BG OXYHEMOGLOBIN 85.8 % (94.0-97.0); BG PCO2 48.5 mmHg (35.0-45.0); BG PH 7.314 (7.350-7.450); BG PO2 58.4 mmHg (75.0-100.0); BG SAMPLE SITE RIGHT RADIAL; BG TOTAL HEMOGLOBIN 7.1 g/dL (12.0-18.0); BG VENT MODE VENT- PRVC
[2021-05-25] MEDS: PANTOPRAZOLE SODIUM 40 MG/VIAL IV SCH ×2 (08:34→20:12)
[2021-05-25] MEDS: MULTIVITAMINS,THER W-MINERALS TABLET PO SCH (08:34)
[2021-05-25] MEDS: METHIMAZOLE 5MG TABLET PO SCH (08:34)
[2021-05-25] MEDS: DEXAMETHASONE 10 MG/ML VIAL IV SCH (08:34)
[2021-05-25] MEDS: MIDAZOLAM HCL 100 MG in SODIUM CHLORIDE 0.9% 80 ML IV PRN ×2 (09:18→16:05)
[2021-05-25 09:20] LABS: NUCLEATED RED BLOOD CELLS 5 /100 WBC; PLATELET ESTIMATE MARKEDLY DECREASED
[2021-05-25] MEDS: NOREPINEPHRINE 8 MG in DEXTROSE 5% WATER 250 ML IV PRN ×3 (13:11→23:49)
[2021-05-25 18:16] LABS: HEMOGLOBIN 8.4 g/dL (12.0-16.0)
[2021-05-25 18:27] LABS: INR 1.5; PROTHROMBIN TIME 15.5 sec (9.6-11.0)
[2021-05-25] MEDS ORDERED: VASOPRESSIN 20 UNIT in SODIUM CHLORIDE 0.9% 99 ML IV PRN (19:00)
[2021-05-25] MEDS ORDERED: DOPAMINE 800MG PREMIX (DOUBLE) 250 ML IV ONE (21:07)
[2021-05-25] MEDS: EPINEPHRINE 5 MG in SODIUM CHLORIDE 0.9% 245 ML IV PRN ×2 (22:01→22:19)
[2021-05-26] VITALS: BP 133/61
[2021-05-26] MEDS ORDERED: EPINEPHRINE 10 MG in SODIUM CHLORIDE 0.9% 240 ML IV PRN
[2021-05-26] MEDS ORDERED: NOREPINEPHRINE 32 MG in DEXT 5% WATER 218 ML IV PRN
[2021-05-26] MEDS: SUCRALFATE 1 G/10 ML UDC NG SCH
[2021-05-26 00:02] VITALS: BP 133/61
[2021-05-26 00:15] VITALS: BP 132/68
[2021-05-26 00:30] VITALS: BP 113/41
[2021-05-26 00:45] VITALS: BP 133/87
[2021-05-26] MEDS ORDERED: SODIUM BICARBONATE 8.4% 1 MEQ/ML 50ML SYR IV ONE (08:16)
[2021-05-26] MEDS ORDERED: SODIUM CHLORIDE 0.9% 10ML VIAL ONE (08:16)
[2021-05-26] MEDS ORDERED: EPINEPHRINE 0.1MG/ML (1:10,000) 10ML SYR ONE ×2 (08:16)
[2021-05-26] MEDS ORDERED: ATROPINE SULFATE 1MG/10ML SYR ONE (08:16)
== END 2021-05-26 00:46 | DRG 720 ==
LOC: ER 20:11 → EDBEDREQTM 21:36 → EDBEDREQ 21:36 → CANRESERV 22:51 → ENRESERV 22:51 → MICUSO 05-14 20:57 → MICUNO 05-23 13:42
PROVIDERS: ADMIT Internal Medicine; ATTEND Internal Medicine
PROC: 5A09457 Assistance with Respiratory Ventilation, 24-96 Consecutive Hours, Continuous Positive Airway Pressure (ICD-10-PCS; 2021-05-14)
PROC: 5A0935A Assistance with Respiratory Ventilation, Less than 24 Consecutive Hours, High Flow/Velocity Cannula (ICD-10-PCS; 2021-05-15)
PROC: 5A09457 Assistance with Respiratory Ventilation, 24-96 Consecutive Hours, Continuous Positive Airway Pressure (ICD-10-PCS; 2021-05-15)
PROC: 02HV33Z Insertion of Infusion Device into Superior Vena Cava, Percutaneous Approach (ICD-10-PCS; 2021-05-15)
PROC: B548ZZA Ultrasonography of Superior Vena Cava, Guidance (ICD-10-PCS; 2021-05-15)
PROC: 5A1955Z Respiratory Ventilation, Greater than 96 Consecutive Hours (ICD-10-PCS; principal; 2021-05-17)
PROC: 0BH17EZ Insertion of Endotracheal Airway into Trachea, Via Natural or Artificial Opening (ICD-10-PCS; 2021-05-17)
PROC: 30233R1 Transfusion of Nonautologous Platelets into Peripheral Vein, Percutaneous Approach (ICD-10-PCS; 2021-05-18)
PROC: 30233N1 Transfusion of Nonautologous Red Blood Cells into Peripheral Vein, Percutaneous Approach (ICD-10-PCS; 2021-05-21)
PROC: 5A12012 Performance of Cardiac Output, Single, Manual (ICD-10-PCS; 2021-05-26)
DX: A41.89 Other specified sepsis (principal); U07.1 COVID-19; R65.21 Severe sepsis with septic shock; J80 Acute respiratory distress syndrome; G93.41 Metabolic encephalopathy; E43 Unspecified severe protein-calorie malnutrition; K92.2 Gastrointestinal hemorrhage, unspecified; I46.9 Cardiac arrest, cause unspecified; D68.8 Other specified coagulation defects; E87.8 Other disorders of electrolyte and fluid balance, not elsewhere classified; D69.6 Thrombocytopenia, unspecified; J12.82 Pneumonia due to coronavirus disease 2019; D64.9 Anemia, unspecified; M62.82 Rhabdomyolysis; E05.90 Thyrotoxicosis, unspecified without thyrotoxic crisis or storm; Z79.899 Other long term (current) drug therapy; Q90.9 Down syndrome, unspecified
CPT/HCPCS: 31500; 36415; 36430; 36600; 71045; 76937; 80048; 80053; 80076; 81003; 82270; 82375; 82550; 82607; 82728; 82746; 82805; 82962; 83036; 83540; 83550; 83605; 83615; 83880; 84145; 84439; 84443; 84450; 84478; 84484; 84703; 85014; 85018; 85025; 85044; 85049; 85379; 85384; 86140; 86705; 86709; 86803; 86850; 86900; 86920; 87070; 87077; 87106; 87340; 87426; 87635; 93005; 93970; 94002; 94003; 94640; 94660; 96365; 96366; 96368; 96375; 99291; A6261; C1725; C9113; J0330; J0456; J0461; J0692; J0696; J1100; J1265; J2250; J2370; J2405; J2704; J3010; J3370; J3490; J7030; J7040; J7050; J7060; P9016; P9034; P9035